=== PATIENT | female | born 1965 | race Caucasian/White ===

== ENCOUNTER 2022-11-03 18:42 | Outpatient (CLI) | payer OTHER | END 2022-11-03 18:43 | disposition EMS.NT | LOC: EMS 18:42 | DX: Z04.1 Encounter for examination and observation following transport accident (principal) ==

== ENCOUNTER 2022-11-05 09:41 | Emergency (ER) | payer OTHER ==
[2022-11-05] MEDS ORDERED: LORazepam 1 MG TABLET PO STA (11:44)
[2022-11-05] MEDS ORDERED: KETOROLAC 30 MG/ML VIAL IM STA (11:45)
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
[2022-11-05 13:56] VITALS: BP 112/51
== END 2022-11-05 13:56 | disposition home or self-care (01) ==
LOC: ED 09:41
DX: F43.11 Post-traumatic stress disorder, acute (principal); V89.2XXA Person injured in unspecified motor-vehicle accident, traffic, initial encounter; Y92.410 Unspecified street and highway as the place of occurrence of the external cause
CPT/HCPCS: 70450; 96372; 99283; 99284; J8499